=== PATIENT | female | born 1995 ===

== ENCOUNTER 2023-06-02 18:45 | Outpatient (CLI) | payer OTHER ==
--- NOTE | 2023-06-02 21:29 | Ultrasound Report ---
PROCEDURE: Pelvic w/Transvaginal INDICATIONS: DYSFUNCTIONAL UTERINE BLEED TECHNIQUE: Real-time scanning was performed of the pelvic organs, with image documentation. Additional endovagi nal scanning was necessary due to incomplete visualization of the adnexal and endometrial structures by transabdominal scanning. COMPARISON: None. FINDINGS: Uterus: Uterus is anteverted and normal in size at 7.1 x 3.6 x 4.4 cm. The myometrium is diffusely heterogeneous without dominant mass. The endometrium measures 9.8 mm in combined thickness. The end ometrial stripe is also diffusely heterogeneous, and its margins are indistinct. The cervix is normal containing several tiny nabothian cysts. No increased vascularity in the uterus. Ovaries: The right ovary measures 2.9 x 1.5 x 2.7 cm, with a calculated ovarian volume of 6.2 cc. T he left ovary measures 3.1 x 1.5 x 3.5 cm, with a calculated ovarian volume of 8.6 cc. The ovaries h ave a normal sonographic appearance. Less than 12 follicles can be seen in each ovary. No adnexal m asses are seen. No cystic lesions measuring greater than 3 cm. Other: No pathologic free abdominal or pelvic fluid. IMPRESSION: 1. Heterogeneous myometrium and endometrium without definition. This is nonspecific, though adenomyos is is not excluded despite normal size uterus. Consider MR imaging. Reviewed by: Rozina Sahu MD on 06/02/2023 9:27 PM PDT Approved by: Rozina Sahu MD on 06/02/2023 9:27 PM PDT Station ID: [id number]
== END 2023-06-02 18:46 | disposition home or self-care (01) ==
LOC: DI 18:45
PROVIDERS: ATTEND Obstetrics & Gynecology
DX: N93.8 Other specified abnormal uterine and vaginal bleeding (principal)